=== PATIENT | male | born 1970 | race Caucasian/White ===

== ENCOUNTER → 2016-03-24 | Outpatient (CLI) | payer OTHER ==
[2016-03-24 08:06] LABS: BASOPHILS # (AUTO) 0.04 10*3/UL; BASOPHILS % (AUTO) 0.6 % (0-1); EOSINOPHILS % (AUTO) 2.7 % (0-8); HEMATOCRIT 42.9 % (42.0-52.0); HEMOGLOBIN 15.2 g/dL (14.0-18.0); IMM GRAN % (AUTO) 0.1 % (0-5); IMM GRAN# (AUTO) 0.01 10*3/UL; LYMPHOCYTES # (AUTO) 2.68 10*3/uL; LYMPHOCYTES % (AUTO) 38.4 % (10-50); MEAN CORPUSCULAR HEMOGLOBIN 28.9 PG (27-31); MEAN CORPUSCULAR HGB CONC 35.4 g/dL (33-37); MEAN PLATELET VOLUME 10.1 FL (7.4-12.2); MONOCYTES # (AUTO) 0.63 10*3/UL (0.3-0.8); NEUTROPHILS # (AUTO) 3.43 10*3/UL; NEUTROPHILS % (AUTO) 49.2 % (50-80); PLATELET MORPHOLOGY COMMENT NORMAL MORPHOLOGY (NORM); RDW COEFFICIENT OF VARIATION 13.2 % (11.5-14.5); RED BLOOD COUNT 5.26 10^6/uL (4.70-6.10); WHITE BLOOD COUNT 6.98 10^3/uL (4.8-10.8)
[2016-03-24 08:20] LABS: ASPARTATE AMINO TRANSFERASE 33 IU/L (21-57); BILIRUBIN,TOTAL 0.9 mg/dL (0.3-1.2); BLOOD UREA NITROGEN 22 mg/dL (7-22); BUN/CREATININE RATIO 18.33 (6-20); CALCIUM 9.6 mg/dL (8.7-10.7); CHLORIDE 104 meq/L (98-112); CREATININE 1.2 mg/dL (0.70-1.50); EST GLOMERULAR FILTRATION > 60 (>60 ml/min/1.73m(2)); GLUCOSE 105 mg/dL (78-110); HDL CHOLESTEROL 37 mg/dL (40-150); POTASSIUM 4.1 meq/L (3.8-5.2); SODIUM 144 meq/L (135-145); TOTAL PROTEIN 7.5 g/dL (6.1-8.0); TRIGLYCERIDES 171 mg/dL (44-200)
== END ==
LOC: LAB 07:51
PROVIDERS: ATTEND Internal Medicine
DX: I10 Essential (primary) hypertension (principal); G47.33 Obstructive sleep apnea (adult) (pediatric); Z12.5 Encounter for screening for malignant neoplasm of prostate
CPT/HCPCS: 36415; 80053; 80061; 84443; 85025; G0103

== ENCOUNTER 2016-07-10 23:35 | Emergency (ER) | payer OTHER ==
[2016-07-10] MEDS ORDERED: TAMSULOSIN 0.4 MG CAPSULE PO ONE (23:56)
[2016-07-10] MEDS ORDERED: KETOROLAC 30 MG/1 ML VIAL IVP ONE (23:56)
[2016-07-10] MEDS ORDERED: Sodium Chloride 0.9% 1,000 ML PRIMARY IV ONE (23:56)
[2016-07-10] MEDS ORDERED: NORMAL SALINE 10 ML SYRINGE FLUSH IVP PRN (23:56)
[2016-07-10] MEDS ORDERED: ONDANSETRON 4 MG/2 ML VIAL IVP ONE (23:58)
[2016-07-11] VITALS: RESP 26; TEMP 97.2
[2016-07-11 00:04] LABS: BASOPHILS # (AUTO) 0.09 10*3/UL; BASOPHILS % (AUTO) 0.8 % (0-1); EOSINOPHILS # (AUTO) 0.36 10*3/UL; EOSINOPHILS % (AUTO) 3.1 % (0-8); HEMOGLOBIN 13.9 g/dL (14.0-18.0); LYMPHOCYTES # (AUTO) 5.51 10*3/uL; MEAN CORPUSCULAR HEMOGLOBIN 28.7 PG (27-31); MEAN CORPUSCULAR HGB CONC 35.6 g/dL (33-37); MEAN CORPUSCULAR VOLUME 80.6 FL (80-90); MONOCYTES # (AUTO) 1.21 10*3/UL (0.3-0.8); MONOCYTES % (AUTO) 10.6 % (5-15); NEUTROPHILS # (AUTO) 4.26 10*3/UL; NEUTROPHILS % (AUTO) 37.2 % (50-80); RED BLOOD COUNT 4.84 10^6/uL (4.70-6.10)
[2016-07-11 00:06] LABS: PLATELET MORPHOLOGY COMMENT NORMAL MORPHOLOGY (NORM); RBC MORPHOLOGY COMMENT NORMAL MORPHOLOGY (NORM); WBC MORPHOLOGY COMMENT NORMAL MORPHOLOGY (NORM)
[2016-07-11 00:10] LABS: BLOOD UREA NITROGEN 24 mg/dL (7-22); BUN/CREATININE RATIO 21.81 (6-20); CALCIUM 9.2 mg/dL (8.7-10.7); EST GLOMERULAR FILTRATION > 60 (>60 ml/min/1.73m(2)); SERUM ALBUMIN 4.2 g/dL (3.5-4.8)
[2016-07-11 00:46] LABS: BILIRUBIN,URINE NEGATIVE (NEG); GLUCOSE, URINE (UA) NEGATIVE (NEG); NITRATE,URINE NEGATIVE (NEG); OCCULT BLOOD,URINE LARGE (NEG); PH,URINE 5.5 (5.0-8.5); PROTEIN,URINE 30 mg/dl (NEG)
[2016-07-11 00:48] LABS: CLARITY,URINE CLEAR (CLEAR); COLOR,URINE DARK YELLOW
[2016-07-11 00:49] LABS: URINE SAMPLE TYPE CLEAN CATCH URINE
[2016-07-11 00:55] LABS: BACTERIA,URINE FEW; RBC,URINE 80-100 /hpf; SQUAMOUS EPITHELIAL CELL,UR RARE; WBC,URINE RARE
[2016-07-11] MEDS ORDERED: HYDROcodone-APAP 5 MG -325 MG TABLET PO SCH (01:30)
--- NOTE | 2016-07-11 05:33 | PDOC ---
Male Genitourinary Problem HPI - General Chief Complaint: Genitourinary Complaint Stated Complaint: RIGHT FLANK PAIN X 45 MIN. Date Seen by Provider: 07/10/16 Time Seen by Provider: 23:50 Source: POSITIVE: Patient, Spouse Exam Limitations: POSITIVE: No limitations Nurse's Notes Reviewed & Considered: Yes - History of Present Illness Initial Comments: The patient is a 45-year-old male. 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 He has some associated vomiting. Patient states he felt fine when he went to bed last night. He's had no history of abdominal surgery. History of hypertension for which he takes amlodipine/Omesartan. He has had no associated melena, hematochezia, hematemesis, dysuria or hematuria. No known fevers. No previous similar episodes. Body Location Affected: REPORTS: Abdomen (Radiation into right lower quadrant and right testicle.), Back (Right flank) Timing: REPORTS: Abrupt Duration: 1 hour Severity: Severe Quality: REPORTS: "Pain" Context: REPORTS: Other (please comment) (Onset of pain abrupt and occurred while patient was sleeping.). DENIES: Drug Use, Lifting, Trauma, Recent Surgery Sexual History: DENIES: Non-Contributory, Homosexual, Unprotected [place], Known Exposure to STD, Other Associated Symptoms: REPORTS: Right (Right flank pain). DENIES: Problems Urinating, Burning, Urgency, Pain, Hesitancy, Frequency, Small Amounts, Unable to Urinate, Blood in Urine, Blood in Ejaculate, Discharge from Penis, Yellow, Clear, Thick, Thin, Testicular Pain, Testicular Swelling, Penile Pain, Penile Swelling, Cannot Retract Foreskin, Cannot Replace Foreskin, Inguinal Mass, Flank Pain, Abdominal Pain, Left, Other Similar Symptoms Previously: No Recent Care Received: REPORTS: Denies Any Prior Injuries Related to Current Complaint?: No - Patient Home Medications Home Medications: Home Medications Amlodipine Bes/Olmesartan Med [Amlodipine-Olmesartan 5-40 Mg] 1 each PO QD #90 tab 06/10/16 HYDROcodone/APAP 10/325 Tab [[place] 10/325 Tab] 1 tab PO Q4H PRN #20 tab Tamsulosin HCl [Flomax] 0.4 mg PO DAILY #10 cap 07/11/16 - Patient Allergies Allergies/Adverse Reactions: Allergies Allergy/AdvReac Type Severity Reaction Status Date / Time No Known Allergies Allergy Verified 07/10/16 23:53 Past Medical History - heen HEENT History: Denies History Cardiovascular History: Hypertension Additional Cardiovasular History: 2000 C/O CHEST PAIN WITH CARDIAC CATH AND ECHO WHICH WERE BOTH NORMAL. 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 TO DATE HAS CHOSEN TO NOT START ANTICOAGULANTS Psychiatric History: Denies History History of Sexually Transmitted Diseases: No Male Reproductive History: Denies History Cancer History: Denies History In Past Year Been Physically Harmed or Verbally Threatened: No History of MDRO: No History of Other Communicable Diseases: No Tobacco Use: Never Smoker Alcohol Use: Occasionally Substance Use Type: None Previous Surgical History: Yes Type / Date of Surgery: RIGHT KNEE SCOPE/ HEART CATH Anesthesia Reactions: No Malignant Hyperthermia: No Significant Family History: Cancer, Diabetes, Hypertension Additional Family History: FATHER- BLADDER CA, HTN , DIABETES TYPE 2 Past Medical History Reviewed: Reviewed - No Changes ROS - Limitations ROS Limitations: No Limitations Constitution: REPORTS: Denies Symptoms Cardiovascular: REPORTS: Denies Cardiac Symptoms Respiratory: REPORTS: Denies Resp Symptoms Neurological: REPORTS: Denies Neuro Symptoms Gastrointestinal: REPORTS: Nausea, Vomitting, Other (Right flank pain) Endocrine: REPORTS: Denies Symptoms Musculoskeletal: REPORTS: Denies MS Symptoms Genitourinary: REPORTS: Flank Pain (Right) Eyes: REPORTS: Denies Symptoms ENT: REPORTS: Denies Symptoms Skin: REPORTS: Denies Skin Symptoms Lympathic: REPORTS: Denies Lympathic Symptoms Immunologic: POSITIVE: Denies Symptoms Psychiatric: POSITIVE: Denies Psych Symptoms Male Genitourinary Exam - General Appearance General Appearance: POSITIVE: Alert, Cooperative, No Evidence of Trauma, Moderate Distress (Due to right flank pain) - Abdomen Abdomen: Soft: (All Quadrants), Normal Bowel Sounds: (All Quadrants), Denies Tenderness: (All Quadrants), No Splenomegaly: (All Quadrants), No Hepatomegaly: (All Quadrants), No Guarding: (All Quadrants), No Rebound: (All Quadrants), No Palpable Pulse: (All Quadrants), No Palpabale Mass: (All Quadrants), No Distention: (All Quadrants), No Rigidity: (All Quadrants) Additional Details: Abdominal examination shows bowel sounds reactive. There is no tenderness to the abdomen on direct palpation. No masses, organomegaly or rebound. Patient is circumcised. No hernias and external genitalia normal. - Genital / Rectal Genitals: POSITIVE: Normal Inspection, Normal Palp. of Testicles, Circumcised - HEENT HEENT: POSITIVE: Head Inspection Nml, Eyes Inspection Nml, Ears Inspection Nml, Nose Inspection Nml, Oral/Dental Inspect. Nml, Pharynx Inspect. 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 Lab Results Reviewed: Yes Lab Results: Laboratory Results 07/10/16 07/11/16 Range/Units 23:50 00:40 WBC 11.45 H (4.8-10.8) 10^3/uL RBC 4.84 (4.70-6.10) 10^6/uL Hgb 13.9 L (14.0-18.0) g/dL Hct 39.0 L (42.0-52.0) % MCV 80.6 (80-90) FL MCH 28.7 (27-31) PG MCHC 35.6 (33-37) g/dL RDW Std Deviation 38.7 L (39-50) fL RDW Coeff of [place] 13.5 (11.5-14.5) % Plt Count 350 (140-350) 10*3/uL MPV 10.0 (7.4-12.2) FL Immature Gran % (Auto) 0.2 (0-5) % Neut % (Auto) 37.2 L (50-80) % Lymph % (Auto) 48.1 (10-50) % [place] % (Auto) 10.6 (5-15) % Eos % (Auto) 3.1 (0-8) % Baso % (Auto) 0.8 (0-1) % Immature Gran # (Auto) 0.02 10*3/UL Neut # (Auto) 4.26 10*3/UL Lymph # (Auto) 5.51 10*3/uL [place] # (Auto) 1.21 H (0.3-0.8) 10*3/UL Eos # (Auto) 0.36 10*3/UL Baso # (Auto) 0.09 10*3/UL WBC Morphology Comment Normal morphology (NORM) Plt Morphology Comment Normal morphology (NORM) RBC Morph Comment Normal morphology (NORM) Sodium 140 (135-145) meq/L Potassium 3.6 L (3.8-5.2) meq/L Chloride 101 (98-112) meq/L Carbon Dioxide 25 (23-33) meq/L Anion Gap 14 (5-20) BUN 24 H (7-22) mg/dL Creatinine 1.1 (0.70-1.50) mg/dL Estimated GFR > 60 (>60 ml/min/1.73m(2)) BUN/Creatinine Ratio 21.81 H (6-20) Glucose 101 (78-110) mg/dL Calculated Osmolality 293.0 H (267-292) mOsm/kg Calcium 9.2 (8.7-10.7) mg/dL Total Bilirubin 1.0 (0.3-1.2) mg/dL AST 22 (21-57) IU/L ALT 44 (21-72) IU/L Alkaline Phosphatase 49 (38-126) IU/L Total Protein 7.4 (6.1-8.0) g/dL Albumin 4.2 (3.5-4.8) g/dL Globulin 3.1 (2.50-4.10) g/dL Albumin/Globulin Ratio 1.30 (1.3-2.0) mg/g Ur Collection Type Clean catch urine Urine Color Dark yellow Urine Clarity Clear (CLEAR) Urine pH 5.5 (5.0-8.5) Ur Specific [place] 1.025 (1.005-1.030) Urine Protein 30 (NEG) mg/dl Urine Glucose (UA) Negative (NEG) mg/dL Urine Ketones Negative (NEG) Urine Occult Blood Large H (NEG) Urine Nitrate Negative (NEG) Urine Bilirubin Negative (NEG) Urine Urobilinogen 1.0 (0.2) EU/dL Ur Leukocyte Esterase Negative (NEG) Urine RBC 80-100 (NONE) /hpf Urine WBC Rare (NONE) Ur Squamous Epith Cells Rare (NONE) Ur Renal Epithelial Cell None (NONE) Urine Crystals None Urine Bacteria Few (NONE) Urine Casts None (NONE) Urine Mucus Many (NONE) Urine Trichomonas None (NONE) Urine Yeast None (NONE) Ur Culture Indicated? Culture not set - Patient's Progress Pain Medication Addressed: POSITIVE: Yes (Toradol, 30 mg IV) School/Work Release Addressed: POSITIVE: Not Applicable Re-Examine Time:: 01:10 Re-Examine Comment: Patient's pain has resolved upon discharge. Diagnosis discussed with patient. Discharged on Flomax daily and hydrocodone/APAP as necessary for pain. To strain urine. Return if condition worsens. Follow-up with urology as indicated in discharge instructions. Status: POSITIVE: Improved, Re-Examined - Consult Counseled: POSITIVE: Patient, RE: Lab Results, RE: Radiology Results, RE: DX, RE : Need for F/U Patient Care Time - Estimated PCT Patient Care Time (In Minutes): 42 Vital Signs - Recent Vital Signs Vital Signs: Vital Signs (Last 8 hours) Temp Pulse Resp BP Pulse Ox 07/10/16 23:40 97.2 F 62 26 H 115/80 99 - VS Reviewed Vital Signs Reviewed: Yes Discharge Clinical Impression: Renal colic Discharge Disposition: Discharged to Home Condition: Stable Prescriptions / Orders: Tamsulosin HCl [Flomax] 0.4 mg PO DAILY #10 cap HYDROcodone/APAP 10/325 Tab [[place] 10/325 Tab] 1 tab PO Q4H PRN #20 tab PRN Reason: Pain Patient Instructions Given at Discharge: Ureteral Stones (ED) Additional Instructions: You're passing a kidney stone on the right. I'm glad you are feeling better. Please increase fluids. Strain your urine and check for the passage of a stone. Flomax, one daily. You may have a recurrence of pain before the stone passes; you may take hydrocodone/APAP, one every 4 hours as necessary for pain. Follow-up with urology in [place] if you have not passed a stone in 10 days, or if condition worsens. Return here anytime if you develop intractable pain, vomiting or fevers. Follow Up With: SOLANGE FISHER [Primary Care Provider] - (Instructions as above. Return here as necessary.)
== END 2016-07-11 01:28 | disposition home or self-care (01) ==
LOC: ER 23:35
DX: N23 Unspecified renal colic (principal); M54.5 Low back pain; R10.11 Right upper quadrant pain
CPT/HCPCS: 74177; 80053; 81001; 81003; 85025; 96361; 96374; 96375; 99283 ×2; J1885; J2405; J7030